=== PATIENT | male | born 1945 | race Caucasian/White ===

== ENCOUNTER 2017-05-04 23:17 | Inpatient (IN) | payer MEDICARE, BC ==
[2017-05-05 00:40] LABS: BASOPHILS % (AUTO) 1 % (0-3); EOSINOPHILS % (AUTO) 2 % (0-9); HEMATOCRIT 34 % (39-53); MEAN CORPUSCULAR HGB CONC 33.8 gm/dl (32.0-36.0); MEAN CORPUSCULAR VOLUME 88 fL (80-100)
[2017-05-05 00:45] LABS: ALBUMIN 3.5 gm/dl (3.4-5.0); CALCIUM 8.5 mg/dl (8.5-10.1); POTASSIUM 4.1 mMol/L (3.5-5.1)
[2017-05-05] MEDS ORDERED: SODIUM CHLORIDE 0.9% 1000ML 1,000 ML IV ONE (01:46)
[2017-05-05] MEDS: SODIUM CHLORIDE 0.9% FLUSH 10 ML SOL IV PRN (02:13)
[2017-05-05] MEDS ORDERED: PATIENT EDUCATION 1 MISC PRN (03:47)
[2017-05-05] MEDS ORDERED: SODIUM CHLORIDE 0.9% 1000ML 1,000 ML IV SCH (04:05)
[2017-05-05 08:40] LABS: CALCIUM 8.4 mg/dl (8.5-10.1); POTASSIUM 4.3 mMol/L (3.5-5.1)
[2017-05-05] MEDS ORDERED: SOTALOL HCL 120 MG PO SCH (08:45)
[2017-05-05] MEDS ORDERED: MONTELUKAST SODIUM 10 MG TAB PO SCH (09:00)
[2017-05-05] MEDS ORDERED: PHYTONADIONE 10 MG/ML SOL IM ONE (09:00)
[2017-05-05] MEDS ORDERED: CARVEDILOL 12.5 MG TAB PO SCH (09:00)
[2017-05-05] MEDS: MONTELUKAST SODIUM 10 MG TAB PO SCH (09:37)
[2017-05-05] MEDS: CARVEDILOL 12.5 MG TAB PO SCH ×2 (09:37→18:04)
[2017-05-05] MEDS ORDERED: SODIUM CHLORIDE 0.9% 500 ML 500 ML IV ONE (09:50)
[2017-05-05] MEDS: BISACODYL 5 MG TAB ECT PO SCH (11:43)
[2017-05-05] MEDS: SODIUM CHLORIDE 0.9% 1000ML 1,000 ML IV SCH ×2 (11:43→21:50)
[2017-05-05 16:30] LABS: CALCIUM 8.4 mg/dl (8.5-10.1); POTASSIUM 3.9 mMol/L (3.5-5.1)
[2017-05-05] MEDS ORDERED: PROTHROMBIN COMPLEX HUMAN 500 IU PDS IV ONE (17:53)
[2017-05-05] MEDS ORDERED: POLYETHYLENE GLYCOL 17 GM/1 TBS PDS PO ONE (19:00)
[2017-05-05] MEDS ORDERED: PROTHROMBIN COMPLEX HUMAN IV ONE (19:32)
[2017-05-05] MEDS: SOTALOL HCL 120 MG PO SCH (20:06)
[2017-05-05] MEDS ORDERED: ONDANSETRON 4 MG ODT BU ONE (23:30)
[2017-05-05] MEDS ORDERED: ONDANSETRON 4 MG ODT BU PRN (23:30)
[2017-05-06] MEDS ORDERED: LIDOCAINE HCL 1% MPF SOL ONE (06:53)
[2017-05-06] MEDS ORDERED: PROPOFOL 500 MG/50 ML EMU IV ONE (06:53)
[2017-05-06 07:26] LABS: CALCIUM 8.4 mg/dl (8.5-10.1)
[2017-05-06 07:32] LABS: BASOPHILS % (AUTO) 1 % (0-3); EOSINOPHILS % (AUTO) 2 % (0-9); HEMATOCRIT 34 % (39-53); MEAN CORPUSCULAR HGB CONC 33.6 gm/dl (32.0-36.0); MEAN CORPUSCULAR VOLUME 88 fL (80-100); MONOCYTES % (AUTO) 12.2 % (0-12); NEUTROPHILS % (AUTO) 72.4 % (37-80)
[2017-05-06] MEDS: SODIUM CHLORIDE 0.9% 1000ML 1,000 ML IV SCH (08:04)
[2017-05-06] MEDS: MONTELUKAST SODIUM 10 MG TAB PO SCH (08:05)
[2017-05-06] MEDS: SOTALOL HCL 120 MG PO SCH ×2 (08:05→20:55)
[2017-05-06] MEDS: CARVEDILOL 12.5 MG TAB PO SCH ×2 (08:05→17:41)
[2017-05-06] MEDS: FLEET ENEMA PR PRN ×2 (09:56→10:31)
[2017-05-06] MEDS: BISACODYL 5 MG TAB ECT PO SCH (14:10)
[2017-05-06] MEDS ORDERED: WARFARIN SODIUM 7.5 MG TAB PO SCH (18:00)
[2017-05-06] MEDS: SODIUM CHLORIDE 0.9% FLUSH 10 ML SOL IV PRN (20:56)
[2017-05-07 02:19] VITALS: O2SAT 95
[2017-05-07] MEDS: SODIUM CHLORIDE 0.9% FLUSH 10 ML SOL IV SCH ×2 (05:50→13:00)
[2017-05-07 08:21] LABS: BASOPHILS % (AUTO) 1 % (0-3); EOSINOPHILS % (AUTO) 3 % (0-9); HEMATOCRIT 36 % (39-53); MEAN CORPUSCULAR HGB CONC 33.6 gm/dl (32.0-36.0); MEAN CORPUSCULAR VOLUME 88 fL (80-100); MONOCYTES % (AUTO) 12.7 % (0-12); NEUTROPHILS % (AUTO) 73.1 % (37-80)
[2017-05-07] MEDS: CARVEDILOL 12.5 MG TAB PO SCH (09:09)
[2017-05-07] MEDS: SOTALOL HCL 120 MG PO SCH (09:09)
[2017-05-07] MEDS: MONTELUKAST SODIUM 10 MG TAB PO SCH (09:10)
[2017-05-07 09:49] VITALS: BP 119/76; PULSE 71; RESP 18; TEMP 97.6
[2017-05-07] MEDS: BISACODYL 5 MG TAB ECT PO SCH (12:18)
== END 2017-05-07 12:40 | disposition home or self-care (01) | DRG 378 ==
LOC: ED 23:17 → SUPCPDRO 23:17 → ACUTE CARE 05-05 02:56 → UNDOADMOB 05-05 02:56 → OBSVTOIN 05-05 08:35 → INTOOBSV 05-05 08:35
PROVIDERS: ADMIT Family Medicine; ATTEND Family Medicine
PROC: 0DBL8ZX Excision of Transverse Colon, Via Natural or Artificial Opening Endoscopic, Diagnostic (ICD-10-PCS; principal; 2017-05-06 12:30)
DX: K92.2 Gastrointestinal hemorrhage, unspecified (principal); S36.69XA Other injury of rectum, initial encounter; E87.1 Hypo-osmolality and hyponatremia; I48.91 Unspecified atrial fibrillation; Z79.01 Long term (current) use of anticoagulants; Z95.0 Presence of cardiac pacemaker; K63.5 Polyp of colon
CPT/HCPCS: 36415; 80048; 80053; 85018; 85025; 85610; 96365; 99284; 99285; C9132; J3430; J2001; J2704